=== PATIENT | male | born 1965 | race Caucasian/White ===

== ENCOUNTER 2018-08-04 07:19 | Day surgery (SDC) | payer MEDICARE, MEDICAID ==
[2018-08-04] MEDS ORDERED: PROPOFOL 20 ML (08:09)
== END 2018-08-04 14:20 | disposition home or self-care (01) ==
LOC: GIL 07:19
DX: Z12.11 Encounter for screening for malignant neoplasm of colon (principal); K64.8 Other hemorrhoids; G80.8 Other cerebral palsy
CPT/HCPCS: G0121